=== PATIENT | male | born 1955 | race Caucasian/White ===

== ENCOUNTER → 2024-02-29 10:06 | Outpatient (CLI) | payer MEDICARE, SELFPAY ==
--- NOTE | 2024-02-29 10:08 | DI.RAD.S_ITS ---
PROCEDURE: XR CHEST 2V INDICATIONS: cough TECHNIQUE: 2 views of the chest were acquired. COMPARISON: None. FINDINGS: Surgical changes and devices: None. Lungs and pleura: Lungs are clear. No pleural effusions or pneumothorax. Mediastinum: Mediastinal contours are normal. Heart size is normal. Bones and chest wall: No suspicious bony abnormalities. Pectus excavatum. IMPRESSION: 1. No acute cardiopulmonary process. 2. Pectus excavatum. Dictated by: Durga Matos M.D. on 02/29/2024 at 14:52 Approved by: Durga Matos M.D. on 02/29/2024 at 14:56
== END ==
PROVIDERS: Referring Provider Nurse Practitioner Family; Visit Provider Nurse Practitioner Family
DX: M95.4 Acquired deformity of chest and rib (principal); R05.9 Cough, unspecified
CPT/HCPCS: 71046